=== PATIENT | male | born 1970 | race Caucasian/White ===

== ENCOUNTER 2019-08-21 17:08 | Inpatient (IN) ==
[2019-08-21] MEDS ORDERED: FENTANYL IV ONE ×2 (17:40→18:37)
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
[2019-08-21] MEDS ORDERED: KEFZOL 2 GM/D5W 2 GM/50 ML IVPB IV ONE (18:49)
[2019-08-21] MEDS ORDERED: NS 1,000 ML IV ONE (18:50)
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
[2019-08-21 19:01] LABS: BASO# 0.05 X1000 (0.0-0.2); BASO% 0.4 % (0.0-0.8); EOS% 0.8 % (0.0-10.0); HEMATOCRIT 42.9 % (42.0-52.0); HEMOGLOBIN 14.8 g/dL (14.0-18.0); IMM GRAN# 0.05 X1000 (0.0-0.04); IMM GRAN% 0.4 % (0.0-0.5); LYMPH% 14.3 % (20.5-51.1); MCH 32.7 PG (27-31); MCHC 34.5 g/dL (33-37); MCV 94.7 FL (81-99); MONO% 4.5 % (1.7-9.3); MPV 10.1 FL (7.4-10.4); NEUT# 10.57 X1000 (1.4-6.5); NEUT% 79.6 % (42.2-75.2); PLT 270 X1000 (130-400); RBC 4.53 XMIL (4.7-6.1); RDW 12.4 % (11.5-14.5); WBC 13.27 X1000 (4.8-10.8)
[2019-08-21] MEDS ORDERED: DILAUDID IV PRN (19:27)
[2019-08-21] MEDS ORDERED: D5 1/2 NS 1,000 ML IV ONE (19:28)
[2019-08-21 19:44] LABS: AGAP 14; ALB/GLOB RATIO 1.7; ALBUMIN 3.9 g/dL (3.5-5.0); ALKALINE PHOSPHATASE 73 U/L (32-122); BUN 6 mg/dL (8-22); CALCIUM 7.8 mg/dL (8.8-10.2); CHLORIDE 107 mmol/L (98-107); COSMO 280; CREATININE 0.9 mg/dL (0.7-1.2); ESTIMATED GFR > 60; GLUCOSE 112 mg/dL (70-104); GOT 19 U/L (10-34); GPT 19 U/L (10-44); POTASSIUM 3.6 mmol/L (3.5-5.1); SODIUM 141 mmol/L (136-145); TCO2 20 mmol/L (25-35); TOTAL BILIRUBIN < 0.15 mg/dL (0.20-1.00); TOTAL PROTEIN 6.2 g/dL (6.3-8.3)
[2019-08-21] MEDS ORDERED: NS 1,000 ML IV SCH (19:45)
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
[2019-08-21] MEDS: ATIVAN IV PRN (21:03)
[2019-08-21] MEDS ORDERED: DILAUDID IV ONE (22:36)
[2019-08-22] MEDS: DILAUDID IV PRN ×5 (00:54→20:04)
[2019-08-22] MEDS: ATIVAN IV PRN (00:54)
[2019-08-22] MEDS: M.V.I.-12 10 ML, FOLIC ACID 1 MG, MAGNESIUM SULFATE 1 GM, THIAMINE 100 MG in NS 1,000 ML IV SCH ×2 (00:55→23:42)
[2019-08-22] MEDS ORDERED: KEFZOL 1 GM/D5W 1 GM/50 ML IVPB IV SCH (03:00)
[2019-08-22 06:55] LABS: BASO# 0.03 X1000 (0.0-0.2); BASO% 0.3 % (0.0-0.8); EOS# 0.06 X1000 (0.0-0.7); EOS% 0.5 % (0.0-10.0); HEMATOCRIT 43.3 % (42.0-52.0); HEMOGLOBIN 14.6 g/dL (14.0-18.0); IMM GRAN# 0.03 X1000 (0.0-0.04); IMM GRAN% 0.3 % (0.0-0.5); LYMPH# 2.73 X1000 (1.2-3.4); LYMPH% 23.3 % (20.5-51.1); MCH 32.3 PG (27-31); MCHC 33.7 g/dL (33-37); MCV 95.8 FL (81-99); MONO% 7.7 % (1.7-9.3); MPV 10.1 FL (7.4-10.4); NEUT# 7.98 X1000 (1.4-6.5); NEUT% 67.9 % (42.2-75.2); PLT 258 X1000 (130-400); RBC 4.52 XMIL (4.7-6.1); RDW 12.5 % (11.5-14.5); WBC 11.73 X1000 (4.8-10.8)
[2019-08-22 07:17] LABS: AGAP 11; BUN 4 mg/dL (8-22); CALCIUM 8.4 mg/dL (8.8-10.2); CHLORIDE 104 mmol/L (98-107); COSMO 276; CREATININE 0.8 mg/dL (0.7-1.2); ESTIMATED GFR > 60; GLUCOSE 120 mg/dL (70-104); POTASSIUM 3.7 mmol/L (3.5-5.1); SODIUM 139 mmol/L (136-145); TCO2 24 mmol/L (25-35)
[2019-08-22] MEDS ORDERED: KEFZOL 2 GM/D5W 2 GM/50 ML IVPB ONE (07:37)
[2019-08-22] MEDS ORDERED: MARCAINE 0.25% PF ONE (08:28)
[2019-08-22] MEDS ORDERED: DIPRIVAN 1% ONE ×2 (08:44)
[2019-08-22] MEDS ORDERED: VERSED ONE (08:44)
[2019-08-22] MEDS ORDERED: SUFENTA ONE (08:44)
[2019-08-22] MEDS ORDERED: ZOFRAN ONE (09:05)
[2019-08-22] MEDS ORDERED: DECADRON ONE (09:05)
[2019-08-22] MEDS ORDERED: OFIRMEV 1000 MG/ISOTONIC SOLN 0 MG/0 ML BOTTLE ONE (09:22)
[2019-08-22] MEDS ORDERED: EXPAREL 1.3% ONE (09:29)
[2019-08-22] MEDS ORDERED: NORCO-7.5 ONE (10:18)
[2019-08-22] MEDS ORDERED: MORPHINE IV PRN (10:38)
[2019-08-22] MEDS ORDERED: LR 1,000 ML IV SCH (11:00)
--- NOTE | 2019-08-22 14:52 | OPERATIVE NOTE ---
PROCEDURE DATE: 08/22/2019 PREOPERATIVE DIAGNOSIS: Right type 2 open lateral bimalleolar ankle fracture. POSTOPERATIVE DIAGNOSIS: Right type 2 open lateral bimalleolar ankle fracture. PROCEDURE PERFORMED: Irrigation and debridement of lateral malleolus fracture, and open reduction internal fixation of right ankle bimalleolar fracture. ANESTHESIA: General. SURGEON: Isiah Linares M.D. [place] MATE: Chirag. COMPLICATIONS: None. BLOOD LOSS: Minimal. TOURNIQUET TIME: Approximately an hour. DESCRIPTION OF PROCEDURE: The patient was brought to the operative suite and placed in the supine position. After successful administration of general anesthesia, a well-padded tourniquet was placed on the right proximal thigh. Right lower extremity was prepped and draped in the usual sterile fashion. The leg was exsanguinated. Tourniquet insufflated to 350 torr. The laceration laterally was debrided. It was a transverse incision. A longitudinal incision was made anteriorly, extending distally, exposing the fracture site. The fracture site was cleaned and reduced, and a 4.0 cannulated screw was placed from distal to proximal. Excellent reduction of the fracture was obtained. Attention was then directed to the medial malleolus. A longitudinal incision was made overlying the medial malleolus. The fracture was reduced, and then three 4.5 cannulated screws were placed, two transverse and one vertical. Excellent reduction of the medial malleolus was obtained as well. The wounds were copiously irrigated. The skin edge was approximated with 2-0 Vicryl. Skin was closed with interrupted nylon. The wounds were injected with Marcaine, Exparel, and a sterile dressing and a well-padded posterior splint with a stirrup and a cooling blanket were applied. The patient tolerated the procedure well without complication. At the end of the procedure, all counts were correct x2. The patient was transferred to the recovery room in stable condition. cc: Isiah Linares MD
[2019-08-22] MEDS ORDERED: KEFZOL 2 GM in NS 100 ML IV SCH (15:40)
[2019-08-22] MEDS: NORCO-7.5 PO PRN ×2 (15:51→23:42)
[2019-08-22] MEDS: KEFZOL 2 GM/D5W 2 GM/50 ML IVPB IV SCH ×2 (15:51→23:43)
[2019-08-22] MEDS: PERIDEX MT SCH (20:05)
[2019-08-22] MEDS ORDERED: NICODERM PATCH TD PRN (20:17)
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
[2019-08-22] MEDS: NORVASC PO SCH (23:41)
--- NOTE | 2019-08-23 00:46 | PROGRESS NOTE ---
DATE: 08/22/2019 INTERVAL HISTORY: Mr. Dietz underwent open reduction internal fixation of right open displaced ankle fracture which he tolerated well. I counseled him about tobacco cessation and alcohol sedation. He is denying any complaints at the moment. Temperature of 98.9 degrees, pulse 77, respiratory rate 18, blood pressure 144/69, he is saturating 93%. PHYSICAL EXAMINATION: Not in acute distress. Oral cavity is moist. Air entry bilaterally equal. No wheeze, rhonchi, crackles. S1, S2 normal. No murmur or gallop.Abdomen: Soft, nontender. No lower extremity edema. His right lower extremity is in bandage. LABS: Suggestive of essentially acceptable range of electrolytes and CBC. No new microbiological or imaging data. ASSESSMENT AND PLAN: 1. Right open bimalleolar fracture. Orthopedic surgery was consulted and patient underwent open reduction, internal fixation on August 22. Continue intravenous antibiotics as per the orthopedic doctor's recommendations. Continue intravenous pain medications as needed. 2. History of tobacco abuse and alcohol abuse. Patient was counseled about not using these substances. I will give him nicotine patch as needed and continue intravenous lorazepam as needed for alcohol withdrawal. He says if he does not drink for 24 hours he can get jittery. 3. Disposition. Awaiting orthopedic recommendations. Plan of care discussed with him. His questions have been answered. I will start him on DVT prophylaxis. cc: Toño Ferrera MD
[2019-08-23] MEDS: ATIVAN IV PRN (01:00)
[2019-08-23] MEDS ORDERED: LOVENOX SUBQ SCH (06:00)
[2019-08-23] MEDS: DILAUDID IV PRN ×3 (06:21→14:17)
[2019-08-23] MEDS: KEFZOL 2 GM/D5W 2 GM/50 ML IVPB IV SCH (08:13)
[2019-08-23] MEDS: NORVASC PO SCH (09:46)
[2019-08-23] MEDS: PERIDEX MT SCH (09:49)
[2019-08-23 11:48] VITALS: BP 149/85
[2019-08-23] MEDS: NORCO-7.5 PO PRN (12:40)
--- NOTE | 2019-08-23 13:13 | ORTHOPAEDICS PROGRESS NOTE ---
DATE: 08/23/2019 SUBJECTIVE: Rickie Dietz is a 48-year-old male who is postoperative day 1 from open reduction internal fixation of his open right ankle fracture. He has no new complaints. OBJECTIVE: He is a well-developed, well-nourished male. He is alert and cooperative on exam. His dressing is clean, dry, and intact. ASSESSMENT: Stable right ankle. PLAN: He will need 24 hours of antibiotics, and then I would be able to ambulate nonweightbearing once stable. Once this is accomplished, he can be discharged home. He may need crutches versus a walker versus a knee walker or knee scooter type device. He will return to see me in 1 week for follow-up exam. cc: Isiah Linares MD
--- NOTE | 2019-08-23 14:55 | ORTHOPAEDICS PROGRESS NOTE ---
DATE: 08/23/2019 SUBJECTIVE: Rickie Dietz is a 48-year-old male who is postop from his right open ankle fracture ORIF. He complains of continued pain but otherwise no new complaints. OBJECTIVE: His vital signs are stable. He is afebrile. He was able to walk with physical therapy with crutches. ASSESSMENT: Stable right ankle. PLAN: He can be discharged home today with the crutches. He will follow up with me next . cc: sIiah Linares MD
== END 2019-08-23 15:38 | disposition home or self-care (01) | DRG 494 ==
LOC: ED 17:08 → 4N 20:07 → SUATTDRO 20:07
PROVIDERS: ATTEND Internal Medicine